=== PATIENT | female | born 1985 | race Two or more races ===

== ENCOUNTER 2017-01-16 07:30 | Inpatient (IN) | payer MEDICAID ==
[2017-01-16] MEDS ORDERED: OXYTOCIN 10 UNITS/ML VIAL IM ONE (08:29)
[2017-01-16] MEDS ORDERED: LIDOCAINE 1% (PRES FREE) 30 ML VIAL ONE (08:42)
[2017-01-16] MEDS ORDERED: MINERAL OIL 25 ML BOT ONE (08:42)
[2017-01-16] MEDS ORDERED: OXYTOCIN IN NS 500 ML IV ONE (08:42)
[2017-01-16] MEDS ORDERED: LIDOCAINE Viscous 2% 15 ML UDCUP ONE (08:42)
[2017-01-16] MEDS ORDERED: PENICILLIN G POTASSIUM 5 MMU VIAL ONE (08:47)
[2017-01-16 10:21] LABS: HEMATOCRIT 37.6 % (37.0-47.0); HEMOGLOBIN 12.4 gm/l (12.0-16.0); MEAN CELL VOLUME 93.5 fl (81.0-99.0); MEAN CORPUSCULAR HEMOGLOBIN 30.8 pg (27.0-31.0); RED CELL DISTRIBUTION WIDTH 13.2 % (11.5-14.5)
[2017-01-16 10:35] VITALS: BMI 30.5
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
[2017-01-16] MEDS: LACTATED RINGERS 1,000 ML IV SCH ×2 (19:35→21:28)
[2017-01-16] MEDS ORDERED: BUTORPHANOL TARTRATE 1 MG/ML VIAL IV ONE (19:53)
[2017-01-16] MEDS: OXYTOCIN IN NS 500 ML IV PRN ×2 (20:05→21:08)
[2017-01-17] MEDS ORDERED: LIDOCAINE 1% (PRES FREE) 30 ML VIAL IF ONE (00:30)
[2017-01-17] MEDS ORDERED: OXYTOCIN IN NS 334 ML IV PRN (00:30)
[2017-01-17] MEDS ORDERED: MAGNESIUM HYDROXIDE 30 ML UDCUP PO PRN (01:32)
[2017-01-17] MEDS ORDERED: HYDROCODONE/ACETAMINOPHEN 5/325MG TABLET PO PRN (01:32)
[2017-01-17] MEDS ORDERED: BENZOCAINE/MENTHOL 60 APPLIC/BOT TP PRN (01:32)
[2017-01-17] MEDS ORDERED: LANOLIN 50 APPLIC/7G TUBE TP PRN (01:32)
[2017-01-17] MEDS ORDERED: SENNOSIDES 8.6 MG TABLET PO PRN (01:32)
[2017-01-17] MEDS ORDERED: CALCIUM CARBONATE 500 MG TAB.CHEW PO PRN (01:32)
[2017-01-17] MEDS ORDERED: OXYTOCIN IN NS 167 ML IV PRN (01:32)
[2017-01-17] MEDS ORDERED: DOCUSATE SODIUM 100 MG CAPSULE PO PRN (01:32)
--- NOTE | 2017-01-17 02:31 | PCMDEL ---
Delivery Note - Labor 1st stage (hr/min):: 18hr 0min 2nd stage (hr/min):: 2hr 26min 3rd stage (hr/min):: 0hr 4min Total (hr/min):: 20hr 30min Pushed (hr/min):: 3hr 0min - Delivery Delivery (Date): 01/17/17 Delivery (Time): 00:26 Infant Gender: Male Presentation: Cephalic Position: OA Umbilical Cord: 3 Vessel, True Knot, Nuchal Cord Delayed Cord Clamping:: Not Performed Placenta:: complete and intact EBL:: 300 ml Perineum:: 2nd deg ML perineum Suture:: 3-0 chromic, repaired in usu fashion Anesthesia/Meds:: stadol during labor, Pitocin augmentation Length ROM:: 12hr 0min Comments:: stunned male infant, mec stained, after nuchal cord w true not reduced on perineum. Large mec on delivery. initially placed on mom's abd, 3V cord clamped and cut then infant passed to warmer for resus. Infant suctioned and dried, about to have PPV then gasped and started crying. Placenta del complete and intact. FF w massage. 2nd deg ML perineal lac repaired after given local lidocaine, then usu fashion repair 3-0 chromic. Infant w vigorous cry, then placed on mom's chest, skin to skin, bonding.
[2017-01-17] MEDS: IBUPROFEN 800 MG TABLET PO PRN ×2 (03:12→11:21)
[2017-01-18] MEDS: IBUPROFEN 800 MG TABLET PO PRN ×3 (00:04→12:30)
[2017-01-18 06:04] LABS: HEMATOCRIT 31.1 % (37.0-47.0); HEMOGLOBIN 10.1 gm/l (12.0-16.0)
--- NOTE | 2017-01-18 08:51 | PDOC39B ---
Hospital Course: ADMIT DATE: 01/16/17 DISCHARGE DATE: 01/18/17 ADMISSION DIAGNOSES: IUP at 41 weeks, labor PROCEDURES: HISTORY OF PRESENT ILLNESS: 31 year old G2 T1 L1 at 41 weeks 1 days presenting with labor HOSPITAL COURSE: The patient presented in labor, delivered by . By day of discharge the patient is ambulating, eating, voiding, and passing flatus without difficulty. Pain is controlled and lochia is appropriate. She is [] - Physical Exam Vital Signs: Temp Pulse Resp BP Pulse Ox 98.1 F 92 18 108/63 99 01/18/17 02:23 01/18/17 02:23 01/18/17 02:23 01/18/17 02:23 01/17/17 15:12 General: Afebrile Neurological: Alert Lungs: Clear to Auscultation Bilaterally Cardiovascular: Regular Rate and Rhythm Breast: Soft Fundus: Firm, At Umbilicus Lochia: Light Rectal Exam: Deferred Extremities: Other (nt, no edema) Skin: Normal Color - Discharge Diagnosis (1) Active labor Status: AcuteAssessment/Plan: 31 yo at 41w0d in active labor delivered by (2) Post-dates Status: Acute (3) (normal spontaneous vaginal delivery) Status: AcuteAssessment/Plan: , PPD 1 doing well dc home - Discharge Plan Condition: Good Disposition: Home Prescriptions: Ibuprofen [Motrin] 800 mg PO Q6H PRN #30 tablet PRN Reason: Pain Follow-Up: Kenia Mendieta MD [Staff Physician] - In 6 weeks (clinic will call)
[2017-01-18 09:01] VITALS: BP 95/57
== END 2017-01-18 13:00 | disposition home or self-care (01) | DRG 775 ==
LOC: FBC 07:30 → FBCOUT 07:30 → FBC 08:00
PROVIDERS: ADMIT Family Medicine; ATTEND Family Medicine
PROC: 10E0XZZ Delivery of Products of Conception, External Approach (ICD-10-PCS; principal; 2017-01-17)
PROC: 0KQM0ZZ Repair Perineum Muscle, Open Approach (ICD-10-PCS; 2017-01-17)
DX: O48.0 Post-term pregnancy (principal); O69.1XX0 Labor and delivery complicated by cord around neck, with compression, not applicable or unspecified; O70.1 Second degree perineal laceration during delivery; O77.0 Labor and delivery complicated by meconium in amniotic fluid; Z37.0 Single live birth; Z3A.41 41 weeks gestation of pregnancy